=== PATIENT | male | born 2000 | race African-American/Black ===

== ENCOUNTER → 2021-09-10 | Emergency (ER) | payer SELFPAY ==
[~2021-09-10] VITALS: Ht 190.5 cm; Wt 85.5 kg
[~2021-09-10] MED LIST: ACETAMINOPHEN 500 MG TABLET PO ONE; ALBU2.5V8 IH; AZIT250T6 PO; IV NORMAL SALINE 1000ML BAG 1,000 ML IV ONE; METH4TAB2 PO; ZIPRASIDONE IM 20 MG VIAL. IM ONE; predniSONE 10 MG TABLET PO ONE
[2021-09-10 20:36] VITALS: BP 146/79
[2021-09-10 21:35] LABS: BASO % 0 % (0-3); EOS % 0 % (0-3); HEMATOCRIT 38.5 % (39.0-53.0); HEMOGLOBIN 13.2 g/dL (13.0-17.5); LYMPH # 0.9 x10^3/uL (1.0-4.8); LYMPH % 13 % (24-48); MEAN CORPUSCULAR HEMOGLOBIN 30 pg (25-35); MEAN CORPUSCULAR HGB CONC 34 g/dL (31-37); MEAN CORPUSCULAR VOLUME 86 fL (79-100); MONO % 14 % (0-9); NEUT # 5.2 x10^3/uL (1.8-7.7); NEUT % 72 % (31-73); PLATELET COUNT 179 x10^3/uL (140-400); RED BLOOD COUNT 4.46 x10^6/uL (4.30-5.70); RED CELL DISTRIBUTION WIDTH 13.1 % (11.5-14.5); WHITE BLOOD COUNT 7.2 x10^3/uL (4.0-11.0)
[2021-09-10 21:47] LABS: CALCIUM 9.3 mg/dL (8.5-10.1); CREATININE 1.1 mg/dL (0.7-1.3); GFR 84.5; POTASSIUM 3.8 mmol/L (3.5-5.1)
[2021-09-10 21:53] LABS: ALBUMIN 3.3 g/dL (3.4-5.0); ALBUMIN/GLOBULIN RATIO 0.7 (1.0-1.7); TOTAL BILIRUBIN 1.2 mg/dL (0.2-1.0); TOTAL PROTEIN 8.3 g/dL (6.4-8.2)
--- NOTE | 2021-09-10 22:07 | RAD ---
Exam: Chest one view INDICATION: Short of air, pain TECHNIQUE: Frontal view of the chest Comparisons: None FINDINGS: The cardiomediastinal silhouette and pulmonary vessels are within normal limits. Left basilar airspace disease. No pleural effusion IMPRESSION: Bibasilar airspace disease may relate to atelectasis or developing infectious process Electronically signed by: Negrito Lloyd MD (09/10/2021 10:05 PM) [facility]
[2021-09-10] MEDS: ALBUTEROL SULFATE 2.5 MG/3 ML NEBU. NEB ONE ×2 (22:21→22:50)
--- NOTE | 2021-09-10 22:36 | PHYS DOC ---
Past Medical History Past Surgical History: No Surgical History Smoking Status: Never Smoker Alcohol Use: None General Adult EDM: Chief Complaint: SHORTNESS OF BREATH HPI: HPI: Patient is a 21 year old male who presents with fever, body aches, shortness of breath with right side pain. States that he has had all this for the last 3 to 4 days. Recently diagnosed with schizophrenia. He has not had any vaccinations. Patient is febrile at 102.1. Denies any other history. Denies abdominal pain, nausea, vomiting, diarrhea, headache, dizziness, syncope, chest pain, vision change, focal weakness, numbness or tingling. Review of Systems: Review of Systems: Constitutional: Denies fever or chills. [] Eyes: Denies change in visual acuity. [] HENT: Denies nasal congestion or sore throat. [] Respiratory: Denies cough or shortness of breath. [] Cardiovascular: Denies chest pain or edema. [] GI: Denies abdominal pain, nausea, vomiting, bloody stools or diarrhea. [] : Denies dysuria. [] Musculoskeletal: Denies back pain or joint pain. [] Integument: Denies rash. [] Neurologic: Denies headache, focal weakness or sensory changes. [] Endocrine: Denies polyuria or polydipsia. [] Lymphatic: Denies swollen glands. [] Psychiatric: Denies depression or anxiety. [] Heart Score: C/O Chest Pain: No Current Medications: Current Medications Medications (Trade) Dose Ordered Sig/Doreen Start Time Stop Time Status Last Admin Dose Admin Acetaminophen (Tylenol) 1,000 mg 1X ONCE 09/10/21 22:00 09/10/21 22:01 DC 09/10/21 21:48 1,000 MG Albuterol Sulfate (Ventolin Neb Soln) 5 mg 1X ONCE 09/10/21 22:00 09/10/21 22:01 DC Prednisone (Prednisone) 20 mg 1X ONCE 09/10/21 22:00 09/10/21 22:01 DC 09/10/21 21:48 20 MG Sodium Chloride 1,000 ml @ 1,000 mls/hr 1X ONCE 09/10/21 22:00 09/10/21 22:59 09/10/21 21:47 1,000 MLS/HR Allergies: Allergies: Allergies Coded Allergies Type Severity Reaction Last Updated Verified No Known Drug Allergies 09/10/21 No Physical Exam: PE: Constitutional: Well developed, well nourished, no acute distress, non-toxic appearance. [] HENT: Normocephalic, atraumatic, bilateral external ears normal, oropharynx moist, no oral exudates, nose normal. [] Eyes: PERRLA, EOMI, conjunctiva normal, no discharge. [] Neck: Normal range of motion, no tenderness, supple, no stridor. [] Cardiovascular:Heart rate regular rhythm, no murmur [] Lungs & Thorax: Bilateral breath sounds clear to auscultation [] Abdomen: Bowel sounds normal, soft, no tenderness, no masses, no pulsatile masses. [] Skin: Warm, dry, no erythema, no rash. [] Back: No tenderness, no CVA tenderness. [] Extremities: No tenderness, no cyanosis, no clubbing, ROM intact, no edema. [] Neurologic: Alert and oriented X 3, normal motor function, normal sensory function, no focal deficits noted. [] Psychologic: Affect normal, judgement normal, mood normal. [] Current Patient Data: Labs: Laboratory Tests Test 09/10/21 21:04 White Blood Count 7.2 x10^3/uL (4.0-11.0) Red Blood Count 4.46 x10^6/uL (4.30-5.70) Hemoglobin 13.2 g/dL (13.0-17.5) Hematocrit 38.5 % (39.0-53.0) L Mean Corpuscular Volume 86 fL (79-100) Mean Corpuscular Hemoglobin 30 pg (25-35) Mean Corpuscular Hemoglobin Concent 34 g/dL (31-37) Red Cell Distribution Width 13.1 % (11.5-14.5) Platelet Count 179 x10^3/uL (140-400) Neutrophils (%) (Auto) 72 % (31-73) Lymphocytes (%) (Auto) 13 % (24-48) L Monocytes (%) (Auto) 14 % (0-9) H Eosinophils (%) (Auto) 0 % (0-3) Basophils (%) (Auto) 0 % (0-3) Neutrophils # (Auto) 5.2 x10^3/uL (1.8-7.7) Lymphocytes # (Auto) 0.9 x10^3/uL (1.0-4.8) L Monocytes # (Auto) 1.0 x10^3/uL (0.0-1.1) Eosinophils # (Auto) 0.0 x10^3/uL (0.0-0.7) Basophils # (Auto) 0.0 x10^3/uL (0.0-0.2) Sodium Level 136 mmol/L (136-145) Potassium Level 3.8 mmol/L (3.5-5.1) Chloride Level 100 mmol/L (98-107) Carbon Dioxide Level 27 mmol/L (21-32) Anion Gap 9 (6-14) Blood Urea Nitrogen 13 mg/dL (8-26) Creatinine 1.1 mg/dL (0.7-1.3) Estimated GFR (Cockcroft-Gault) 84.5 BUN/Creatinine Ratio 12 (6-20) Glucose Level 123 mg/dL (70-99) H Lactic Acid Level 0.7 mmol/L (0.4-2.0) Calcium Level 9.3 mg/dL (8.5-10.1) Total Bilirubin 1.2 mg/dL (0.2-1.0) H Aspartate Amino Transferase (AST) 19 U/L (15-37) Alanine Aminotransferase (ALT) 34 U/L (16-63) Alkaline Phosphatase 73 U/L (46-116) Total Protein 8.3 g/dL (6.4-8.2) H Albumin 3.3 g/dL (3.4-5.0) L Albumin/Globulin Ratio 0.7 (1.0-1.7) L Laboratory Tests 09/10/21 21:04 Laboratory Tests 09/10/21 21:04 Vital Signs: Vital Signs Date Time Temp Pulse Resp B/P (MAP) Pulse Ox O2 Delivery O2 Flow Rate FiO2 09/10/21 20:36 102.0 119 32 146/79 (101) 97 Room Air 102.0 EKG: EKG: [] Radiology/Procedures: Radiology/Procedures: [] Impression: [facility] [address] [place] [address] IMAGING REPORT Signed PATIENT: EARL FORREST ACCOUNT: [id number] : 2000 LOCATION: ER AGE: 21 SEX: M EXAM STATUS: REG ER ORD. PHYSICIAN: JESSICA FISH APRN REASON: SOA PROCEDURE: PORTABLE CHEST 1V Exam: Chest one view INDICATION: Short of air, pain TECHNIQUE: Frontal view of the chest Comparisons: None FINDINGS: The cardiomediastinal silhouette and pulmonary vessels are within normal limits. Left basilar airspace disease. No pleural effusion IMPRESSION: Bibasilar airspace disease may relate to atelectasis or developing infectious process Electronically signed by: Negrito Hernandez MD (09/10/2021 10:05 PM) [facility] DICTATED and SIGNED BY: NEGRITO HERNANDEZ MD DATE: 09/10/212202 Course & Med Decision Making: Course & Med Decision Making Pertinent Labs and Imaging studies reviewed. (See chart for details) See HPI. Alert and oriented x4. Ambulatory steady gait. Skin pink warm and dry. Lungs are clear in upper lobes but diminished in lower lobes. Patient is refusing a breathing treatment. He did take the prednisone. He is given Tylenol and fluids in the ED. Patient's heart rate has come down. Chest x-ray shows some possible developing pneumonia. His rapid COVID and influenza are negative. I will start him on antibiotics and a Medrol Dosepak. Dragon Disclaimer: [place] Disclaimer: This electronic medical record was generated, in whole or in part, using a voice recognition dictation system. Departure Departure Impression: Primary Impression: Respiratory infection Disposition: HOME / SELF CARE / HOMELESS Condition: STABLE Referrals: UNKNOWN PCP NAME (PCP) Patient Instructions: Pneumonia, Adult Additional Instructions: Follow-up with your primary care provider this coming up week. Take antibiotic as prescribed and with food. Drink plenty fluids to stay hydrated. Take Tylenol or ibuprofen to keep down your fever and to help with pain. Make sure you finish all medication. If begin having severe shortness of breath, chest pain return to the emergency room. Scripts Albuterol Sulfate (PROAIR HFA INHALER) 8.5 Gm Hfa.aer.ad 2 PUFF IH PRN Q4-6HRS PRN for wheezing for 21 Days, #1 INHALER 0 Refills Prov: JESSICA FISH APRN 09/10/21 Azithromycin (AZITHROMYCIN TABLET) 250 Mg Tablet 1 PKG PO UD for 5 Days, #6 TAB 0 Refills 2 the first day followed by 1 for days 2-5 Prov: JESSICA FISH APRN 09/10/21 Methylprednisolone (MEDROL) 4 Mg Tab.ds.pk 1 PKG PO UD, #1 PKG Prov: JESSICA FISH APRN 09/10/21 JESSICA FISH APRN September 10, 2021 22:36
[2021-09-10 22:58] LABS: INFLUENZA A PATIENT NEGATIVE (NEGATIVE); INFLUENZA B PATIENT NEGATIVE (NEGATIVE)
--- NOTE | 2021-09-12 01:47 | EKG ---
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
== END | disposition home or self-care (01) ==
LOC: ER 20:34
DX: J98.8 Other specified respiratory disorders (principal); Z20.822 Contact with and (suspected) exposure to COVID-19
CPT/HCPCS: 36415; 71045; 80053; 83605; 85025; 87040; 87428; 96360; 99285; J7030; J7512; J7613; 93005